=== PATIENT | male | born 1970 | race African-American/Black ===

== ENCOUNTER 2016-10-24 22:14 | Emergency (ER) | payer OTHER ==
[~2016-10-24] VITALS: Ht 162.6 cm; Wt 75.9 kg
[~2016-10-24 22:14] MED LIST: AUGMENTIN875 MG PO; BACTRIM,SEPT1 TABLET PO; CYMBALTA30 MG PO; FLEXERIL10 MG PO; FLONASE16 G1 BOTH NARES; INDOCIN25 MG PO; KEFLEX500 MG PO; MUCUS ER600 MG PO; NAPROSYN500 MG PO; NEURONTIN100 MG PO; PERCOCET 5/31 TABLET PO; PREDNISONE50 MG PO; ROBITUSSIN NIG118 ML PO; SKELAXIN800 MG PO; TESSALON PERLE100 MG PO; TRAMADOL HCL50 MG PO
[2016-10-24] MEDS ORDERED: NAPROXEN500 MG PO (23:30)
[2016-10-24] MEDS ORDERED: PREDNISONE20 MG PO (23:30)
[2016-10-24] MEDS ORDERED: FLEXERIL10 MG PO (23:30)
[2016-10-24 23:42] VITALS: BP 110/70
== END 2016-10-24 23:44 | disposition home or self-care (01) ==
LOC: EME 22:14
DX: M54.16 Radiculopathy, lumbar region (principal)
CPT/HCPCS: 99281; 99284; J7512

== ENCOUNTER 2016-11-05 15:18 | Observation (INO) | payer OTHER ==
[~2016-11-05] VITALS: Ht 162.6 cm; Wt 73.2 kg
[~2016-11-05 15:18] MED LIST changes: +NAPROXEN500 MG PO; +PREDNISONE20 MG PO
[2016-11-05 17:14] LABS: BASOPHIL COUNT 0.1 K/uL (0-0.1); EOSINOPHIL (%) 1.2 % (0-5); EOSINOPHIL COUNT 0.1 K/uL (0-0.3); HEMATOCRIT 48.8 % (38.0-50.0); IMMATURE GRANULOCYTE (%) 0.6 % (0.0-0.7); IMMATURE GRANULOCYTE COUNT 0.1 K/uL; INSTRUMENT ABS NEUTROPHIL CT 6.2 K/uL; LYMPHOCYTE COUNT 4.1 K/uL (1.0-2.8); MCH 29.4 PG (29.0-34.0); MCV 89.1 FL (86-99); MEAN PLAT.VOLUME 10.1 uM^3 (9.0-12.4); MONOCYTE (%) 6.6 % (3-12); MONOCYTE COUNT 0.7 K/uL (0-0.8); NEUTROPHIL (%) 55.1 % (45-76); NEUTROPHIL COUNT 6.2 K/uL (1.8-6.4); PLATELET COUNT 221 K/uL (156-360); RBC DIS.WIDTH-CV 12.3 % (11.8-14.6); RBC DIS.WIDTH-SD 40.1 % (39-53); RED BLOOD COUNT 5.48 M/uL (4.00-5.50); WHITE BLOOD COUNT 11.3 K/uL (4.1-10.2)
[2016-11-05 17:25] LABS: CHLORIDE 108 mEq/L (99-109); POTASSIUM 3.6 mEq/L (3.7-5.4); SODIUM 143 mEq/L (136-147)
[2016-11-05 17:27] LABS: GLUCOSE 83 mg/dL (70-99)
[2016-11-05 17:28] LABS: ANION GAP 8 MEQ/L (2-14)
[2016-11-05 17:29] LABS: TOTAL BILIRUBIN 0.9 mg/dL (0.0-1.0)
[2016-11-05 17:30] LABS: ALKALINE PHOSPHATASE 79 IU/L (3-129)
[2016-11-05 17:31] LABS: GFR ESTIMATE (CALCULATED) > 59 mL/min/
[2016-11-05 17:32] LABS: UREA NITROGEN (BUN) 14 mg/dL (9-23)
[2016-11-06 05:28] VITALS: BP 122/69
[2016-11-06 06:59] LABS: TROP-I INTERPRETATION NEGATIVE; TROPONIN-I < 0.01 ng/mL (0.0-0.30)
[2016-11-06 11:47] VITALS: BP 110/65
[2016-11-06 13:23] LABS: ADD MIUA? NO; BILIRUBIN NEGATIVE; BLOOD NEGATIVE; COLOR STRAW ((YELLOW)); GLUCOSE (STRIP) NEGATIVE; KETONES NEGATIVE; LEUKOCYTES NEGATIVE; NITRITE NEGATIVE; PROTEIN (STRIP) NEGATIVE; UCUL ADDED? NO; UROBILINOGEN 0.2 MG/DL (0.2-1.0)
[2016-11-06 15:26] VITALS: BP 129/82
== END 2016-11-06 18:32 | disposition home or self-care (01) ==
LOC: EME 15:18 → EDOF 11-06 02:46 → 5WEST 11-06 02:46 → EDOF 11-06 02:46 → ENRESERV 11-06 02:55 → 5WEST 11-06 05:12
PROVIDERS: Emergency Medicine; Hospitalist; Nurse Practitioner Family
DX: R55 Syncope and collapse (principal); R94.31 Abnormal electrocardiogram [ECG] [EKG]; R00.2 Palpitations; D72.829 Elevated white blood cell count, unspecified; E87.6 Hypokalemia; E86.0 Dehydration; R20.2 Paresthesia of skin; R27.0 Ataxia, unspecified; W10.9XXA Fall (on) (from) unspecified stairs and steps, initial encounter
CPT/HCPCS: 70450; 70551; 80053; 81003; 84484; 85025; 93005; 93306; 99281; 99285; G0378; J1885; J7030

== ENCOUNTER 2016-12-10 08:57 | Emergency (ER) | payer OTHER ==
[~2016-12-10] VITALS: Ht 162.6 cm; Wt 75.0 kg
[2016-12-10] MEDS ORDERED: NAPROSYN500 MG PO (09:55)
[2016-12-10 10:10] VITALS: BP 162/92
== END 2016-12-10 10:13 | disposition home or self-care (01) ==
LOC: EME 08:57
DX: S40.012A Contusion of left shoulder, initial encounter (principal); S43.402A Unspecified sprain of left shoulder joint, initial encounter; V86.59XA Driver of other special all-terrain or other off-road motor vehicle injured in nontraffic accident, initial encounter; Y92.488 Other paved roadways as the place of occurrence of the external cause
CPT/HCPCS: 73030; 99281; 99283

== ENCOUNTER 2017-03-11 09:35 | Day surgery (SDC) | payer BC, OTHER ==
[~2017-03-11] VITALS: Ht 162.6 cm; Wt 78.9 kg
[~2017-03-11 09:35] MED LIST changes: +DIOVAN160 MG PO; +GLUCOPHAGE XR,500 MG PO; -NEURONTIN100 MG PO; +NEURONTIN800 MG PO; +PAMELOR25 MG PO; +ULTRAM50 MG PO
[2017-03-11 10:00] LABS: POINT-OF-CARE METER ID UU14174212
== END 2017-03-11 11:00 | disposition home or self-care (01) ==
LOC: PAIN 09:35 → SDC 10:15 → PAIN 10:15
PROVIDERS: Anesthesiology Pain Medicine
DX: M47.26 Other spondylosis with radiculopathy, lumbar region (principal); M54.5 Low back pain; G89.29 Other chronic pain; M48.061 Spinal stenosis, lumbar region without neurogenic claudication; I10 Essential (primary) hypertension; E78.5 Hyperlipidemia, unspecified; E11.9 Type 2 diabetes mellitus without complications; Z87.891 Personal history of nicotine dependence; Z79.84 Long term (current) use of oral hypoglycemic drugs; Z79.891 Long term (current) use of opiate analgesic
CPT/HCPCS: 82948; J1100; J2250; J3010

== ENCOUNTER 2017-04-10 08:43 | Day surgery (SDC) | payer BC, OTHER ==
[~2017-04-10] VITALS: Ht 162.6 cm; Wt 78.9 kg
== END 2017-04-10 10:45 | disposition home or self-care (01) ==
LOC: PAIN 08:43 → SDC 10:15 → PAIN 10:45
PROVIDERS: Anesthesiology Pain Medicine
PROC: 3E0R3BZ Introduction of Anesthetic Agent into Spinal Canal, Percutaneous Approach (ICD-10-PCS; principal; 2017-04-10)
PROC: 3E0R33Z Introduction of Anti-inflammatory into Spinal Canal, Percutaneous Approach (ICD-10-PCS; principal; 2017-04-10)
DX: M47.26 Other spondylosis with radiculopathy, lumbar region (principal); M48.061 Spinal stenosis, lumbar region without neurogenic claudication; G89.29 Other chronic pain; I10 Essential (primary) hypertension; R73.03 Prediabetes; K21.9 Gastro-esophageal reflux disease without esophagitis; E66.3 Overweight; Z68.29 Body mass index [BMI] 29.0-29.9, adult; Z79.84 Long term (current) use of oral hypoglycemic drugs; Z87.891 Personal history of nicotine dependence
CPT/HCPCS: 82948; J1100; J2250; J3010